=== PATIENT | male | born 1955 | race Caucasian/White ===

== ENCOUNTER 2019-03-07 11:11 | Day surgery (SDC) | payer OTHER, MEDICARE ==
[~2019-03-07] VITALS: Ht 182.9 cm; Wt 82.6 kg
[~2019-03-07 11:11] MED LIST: AMLODIPINE BESY10 MG PO; CLARITIN10 MG PO; COLACE100 MG PO; COZAAR 50 MG TA50 M1 PO; DIALYVITE TABL1 EACH PO; FOSRENOL1000 MG PO; PRILOSEC OTC20 MG PO; RENVELA800 MG PO; SENSIPAR 30 MG30 M1 PO; VITAMIN D3400 UNI2 PO
[2019-03-07 11:53] LABS: CALCIUM 10.4 mg/dL (8.5-10.1); CREATININE 8.5 mg/dL (0.7-1.3); POTASSIUM 5.2 mmol/L (3.5-5.1)
[2019-03-07 11:58] LABS: ALBUMIN 3.8 g/dL (3.4-5.0); TOTAL BILIRUBIN 0.5 mg/dL (<0.1-1.0); TOTAL PROTEIN 8.4 g/dL (6.4-8.2)
[2019-03-07 13:49] VITALS: BP 165/84
--- NOTE | 2019-03-11 06:12 | O ---
[facility] [place] [address] OPERATIVE REPORT Name: STEPHANI HURT Room #: DEP [facility]..#: [id number] Admission: 03/07/19 Attend Phys: Dany Guthrie MD Discharge: 03/07/19 Date of : 57 Report #: [id number] THIS REPORT FOR: //name// CC: Deven Brooke [facility] physician/PCP Ren[place] Guthrie DATE OF SERVICE: 03/07/2019 PREOPERATIVE DIAGNOSIS: Tumor of left lower lid and cheek. POSTOPERATIVE DIAGNOSIS: Tumor of left lower lid and cheek, basal cell carcinoma. PROCEDURE: Excision of tumor of left lower lid and cheek with musculocutaneous flap repair of defect and vascularized tarsoconjunctival flap from left upper lid to left lower lid. SURGEON: Dany Guthrie M.D. MIMEOGRAPH OPERATOR: None. ANESTHESIA: MAC. COMPLICATIONS: None. INDICATIONS FOR SURGERY: This pleasant 64-year-old gentleman presents with a large tumor of his left lower lid and cheek that appears to most likely be a basal cell carcinoma. He presents today for excision of this lesion with frozen sections and subsequent reconstruction of that defect. Informed consent was obtained to include but not limited to the potential risk for loss of vision, bleeding, infection, failure to be the problem, the potential need for further surgery or treatment. DESCRIPTION OF PROCEDURE: The patient was taken to the operating room where 2% Xylocaine with epinephrine mixed with equal parts of 0.75% Marcaine with Wydase was administered transcutaneously and transconjunctivally to the left lower lid, the left medial canthus, the left lateral canthus, the left infratemporal fossa and the left cheek. The patient was subsequently prepped and draped in the usual sterile fashion. A fine tip skin marking pen was then utilized to outline the lesion in its entirety. Incisions were then made perpendicularly across the eyelid margin and drawn down to a point in the premalar space. This tissue was submitted as the main tumor body. [address] [address] OPERATIVE REPORT Name: BLUSTEPHANI Rona Room #: [place] [facility].#: [id number] Admission: 03/07/19 Attend Phys: Dany Guthrie MD Discharge: 03/07/19 Date of : 57 Report #: [id number] A medial and a lateral margins were then taken with vertical incisions across the eyelid margin and drawn down to a point in the premalar space. This tissue was then oriented on a drawing for the waiting pathologist as two separate specimens. Hemostasis was achieved with diligent pinpoint monopolar cautery. The pathologist snap froze that tissue and found that the medial margin was still positive, but that the lateral margin appeared to be clear. An additional medial margin was then taken, removing 2-3 more mm of tissue. This basically meant that the entire lower lid was excised up to the punctum out to the lateral canthus. The pathologist snap froze this tissue and found that the margin now appeared to be clear. Attention was then drawn to repair of the defect. The posterior lamella was reconstructed with a vascularized tarsoconjunctival flap from the left upper lid. The left upper lid was everted and the same anesthetic mixture used at the beginning of the case was then administered transconjunctivally to anesthetize the left upper lid. An incision was then made 3.5 mm up on to the tarsal plate going full thickness through the tarsal plate but only long term through the lid. A Moon scissor was then used to extend this incision across the width of the lid down on to the lower lid retractors. The full thickness skin graft was then harvested utilizing thin section techniques drawing the conjunctiva as thin as possible. It was buttonholed in two separate locations. The tarsoconjunctival flap was secured to the stubs medially and laterally in the lid with 6-0 Vicryl suture. The central portion of the tarsal plate was reattached to the lower lid retraction sutures they were inferiorly. Attention was given then to repair of the anterior lamella. Initially I had considered a full thickness skin graft but decided on a musculocutaneous flap to provide additional support to the lid given the patient's lower lid and cheek laxity. A relaxing incision was then made laterally extended out towards the retroauricular space. A musculocutaneous flap was then developed on the temporalis muscle, which was split in a sagittal fashion. Hemostasis was then re-achieved. The flap was then advanced and secured into the defect in the anterior lamella of left lower lid with cardinal bites of 5-0 and 6-0 Vicryl suture. Across the eyelid margin itself, it was closed with 6-0 plain gut sutures. There was a stub of excess tissue inferiorly that was excised in order to allow the entire musculocutaneous flap to lay flat. The wound was then dressed with erythromycin ophthalmic ointment followed by 2 eye pads, which were placed on top of the Telfa pad under which copious erythromycin ointment had been placed. Benzoin and silk tape were used for the final securing of the dressing, which was placed in such a manner as to splint the lid superiorly. [address] [address] OPERATIVE REPORT Name: STEPHANI HURT Room #: DEP [facility].#: [id number] Admission: 03/07/19 Attend Phys: Dany Guthrie MD Discharge: 03/07/19 Date of : 57 Report #: [id number] The patient was subsequently transported to the recovery area having tolerated the procedure well with no anesthetic or operative complications being noted. <ELECTRONICALLY SIGNED> By: Dany Guthrie MD 03/11/19 0612 [id number] [id number] Dany Guthrie MD /nt
--- NOTE | 2019-03-11 13:07 | PATH ---
[address] [address] PATHOLOGY RPT PROCEDURE Name: STEPHANI HURT Room #: [place] [facility] M.R.#: [id number] Admission: 03/07/19 Date of : 57 Discharge: 03/07/19 Report #: [id number] Path Case #: [id number] [facility] Accession Number: [id number] . 01 Material submitted: . PART A: lid - TUMOR LEFT LOWER LID - LATERAL MARGIN -FS. Modifiers: left, lower, lateral PART B: lid - TUMOR LEFT LOWER LID - MEDIAL MARGIN - FS. Modifiers: left, lower, medial PART C: lid - TUMOR LEFT LOWER LID - ADDITIONAL - FS. Modifiers: left, lower PART D: lid - TUMOR LEFT LOWER LID - MAIN TUMOR BODY. Modifiers: left, lower . 01 Clinical history: . Probably BCCA left lower lid . 02 Frozen section diagnosis: . FROZEN SECTION DIAGNOSES (Mayur Rice MD) . B. Tumor left lower lid medial margin: - BASAL CELL CARCINOMA PRESENT. . C. Tumor left lower lid lateral margin: - Negative for carcinoma. . These findings are discussed with Dr. Guthrie on 03/07/2019 at 14:[address] Mayur Rice. . D. Left lower lid additional medial margin: - Negative for carcinoma. . These findings are discussed with Dr. Guthrie on 03/07/2019 at 14:[address] aMyur Rice. . Frozen section performed at [facility], [address] [place] [address] , [place] [address]. . . GROSS DESCRIPTION B. Received fresh for frozen section is a specimen labeled with the patient's name and "tumor left lower lid medial margin". The specimen consists of a linear shave of prater skin measuring 0.9 x 0.4 x 0.2 cm. The specimen is submitted en face in its entirety in one cassette for frozen section FSB1. The remainder of this tissue is submitted for permanent examination in B1. . C. Specimen received fresh for frozen section in a container labeled with [facility] [address] [place] [address] PATHOLOGY RPT PROCEDURE Name: STEPHANI HURT Room #: DEP [facility].#: [id number] Admission: 03/07/19 Date of : 57 Discharge: 03/07/19 Report #: [id number] Path Case #: [id number] the patient's name and "tumor left lower lid lateral margin". The specimen consists of a linear shave of prater skin measuring 1.0 x 0.4 x 0.2 cm. The specimen is submitted en face in its entirety for frozen section in one block FSC1. The remainder of this tissue is submitted for permanent examination in block C1. . D. Specimen received fresh for frozen section in a container labeled with the patient's name and "left lower lid additional medial margin". The specimen consists of a linear shave of prater skin measuring 1 x 0.3 x 0.3 cm. Focal fine eyelashes are noted. The specimen is submitted en face in its entirety in one block labeled FSD1. The remainder of this tissue is submitted for permanent examination in block D1. (MAP:[facility]; 03/07/2019) . XPL/QMS . 02 Diagnosis: A. "Tumor left lower lid - main tumor body": - Basal cell carcinoma. - Inferior margin negative for carcinoma. - Please see separately submitted lateral and medial margins. . B. "Tumor left lower lid - medial margin": - Positive for basal cell carcinoma. . C. "Tumor left lower lid - lateral margin": - Negative for carcinoma. . D. "Left lower lid additional medial margin": - Negative for carcinoma. (MAP:[facility]; 03/11/2019) QMS/03/11/2019 . 02 Electronically signed: . Mayur Rice MD, Pathologist NPI- [id number] . 01 Gross description: . A. The specimen is received in formalin, labeled "Stephani Kanab, left lower lid main". Received is a curved segment of skin with attached mucosa measuring 1.4 x 0.9 x 0.8 cm in greatest dimensions. The epidermal surface displays a lesion which is poorly circumscribed, irregular in contour, partially crusted and white-prater to light prater measuring 1.0 x 0.6 cm. The inferior margin is inked black. The specimen is sectioned into five pieces and entirely submitted in cassettes A1 and A2. ([facility]; 03/08/2019) [address] [address] PATHOLOGY RPT PROCEDURE Name: STEPHANI HURT Room #: [facility] [facility] Cynthia.#: [id number] Admission: 03/07/19 Date of : 57 Discharge: 03/07/19 Report #: [id number] Path Case #: [id number] . B. See part B gross description dictated by pathologist located under the Frozen Section portion of the report. . C. See part C gross description dictated by pathologist located under the Frozen Section portion of the report. . D. See part B gross description dictated by pathologist located under the Frozen Section portion of the report. QAC/TOB . 02 Pathologist provided ICD-10: C44.1192 . 02 CPT . 541472, 203780, 249611, 800965, 815480, 376946, 874160 Specimen Comment: A courtesy copy of this report has been sent to Specimen Comment: [phone]. Specimen Comment: Report sent to Performed at: [address] [facility], [place] [id number] MD Uriah Mac MD Phone: [phone] Performed at: [address] [facility] [address] [id number] MD Ning Martel MD Phone: [phone]
== END 2019-03-07 15:10 | disposition home or self-care (01) ==
LOC: TBA 11:11 → OR 11:11
PROVIDERS: Ophthalmology
DX: C44.1192 Basal cell carcinoma of skin of left lower eyelid, including canthus (principal); I12.0 Hypertensive chronic kidney disease with stage 5 chronic kidney disease or end stage renal disease; N18.6 End stage renal disease; K21.9 Gastro-esophageal reflux disease without esophagitis; Z98.890 Other specified postprocedural states; Z79.899 Other long term (current) drug therapy
CPT/HCPCS: 50010; 50101; 50386; 50398; 51636; 56528; 56531; 62110; 62850; 70005